=== PATIENT | male | born 1975 | race Hispanic/Latino ===

== ENCOUNTER 2017-01-17 13:10 | Observation (INO) | payer MEDICAID, OTHER ==
[2017-01-17 13:21] VITALS: TEMP 97.7
[2017-01-17 14:20] LABS: BASO % 0.3 % (0.0-2.0); EOS # 0.1 K/uL (0.0-0.7); EOS % 1.4 % (0.0-4.0); HEMATOCRIT 37.7 % (35.0-51.0); LYMPH # 1.8 K/uL (1.0-4.3); MEAN CELL VOLUME 88.1 fl (80.0-94.0); MEAN CORPUSCULAR HEMOGLOBIN 29.1 pg (27.0-31.0); MEAN PLATELET VOLUME 8.6 fl (7.2-11.7); MONO # 0.5 K/uL (0.0-0.8); MONO % 7.4 % (0.0-10.0); NEUT # 3.9 K/uL (1.8-7.0); NEUT % 62.9 % (50.0-75.0); NRBC % 0.1 % (0.0-0.0); RED CELL DISTRIBUTION WIDTH 14.6 % (11.5-14.5); WHITE BLOOD COUNT 6.3 K/uL (4.8-10.8)
[2017-01-17 14:26] LABS: ALCOHOL SERUM < 10 mg/dl (0-10); BLOOD UREA NITROGEN 12 mg/dl (9-20); CALCIUM 8.8 mg/dL (8.4-10.2); CARBON DIOXIDE 28 mmol/L (22-30); CHLORIDE 105 mmol/L (98-107); GFR AFRICAN-AMERICAN > 60; GLUCOSE,RANDOM 94 mg/dL (75-110); POTASSIUM 4.6 MMOL/L (3.6-5.0); SODIUM 142 mmol/l (132-148)
--- NOTE | 2017-01-17 14:30 | ED PDOC ---
HPI: Psych/Substance Abuse Time Seen by Provider: 01/17/17 13:46 Chief Complaint (Nursing): Substance Abuse Chief Complaint (Provider): i drank and did dope ED Caveat: Intoxicated History Per: Patient History/Exam Limitations: intoxication Onset/Duration Of Symptoms: Unknown Current Symptoms Are (Timing): Still Present Modifying Factor(s): Alcohol, Narcotics Severity: Moderate Involuntary Hold By: Emergency Physician Additional Complaint(s): 41yo male arrives c/o using alcohol and heroin IV today. Drowsy but arousable on exam. History limited due to clinical intoxication. Past Medical History Reviewed: Historical Data, Nursing Documentation, Vital Signs Vital Signs: Last Vital Signs Temp 97.7 F 01/17/17 13:18 Pulse 77 01/17/17 13:18 Resp 20 01/17/17 13:18 BP 108/71 01/17/17 13:18 Pulse Ox 95 01/17/17 13:18 - Medical History PMH: Anxiety, Back Problems, Bipolar Disorder, Depression, Hepatitis (C), Post Traumatic Stress Disorder Denies: Diabetes, HIV, HTN, Seizures, Sexually Transmitted Disease - Family History Family History: States: Unknown Family Hx - Living Arrangements Living Arrangements: Other (unknown) - Social History Current smoker - smoking cessation education provided: Yes Alcohol: > 2 Drinks/Day Drugs: Opiates - Immunization History Hx Tetanus Toxoid Vaccination: No Hx Influenza Vaccination: No Hx Pneumococcal Vaccination: No - Home Medications Home Medications: Ambulatory Orders Medication Instructions Recorded Alprazolam 1 mg PO DAILY 04/14/14 Alprazolam 2 mg PO HS 04/14/14 - Allergies Allergies/Adverse Reactions: Allergies Allergy/AdvReac Type Severity Reaction Status Date / Time No Known Allergies Allergy Verified 01/17/17 13:18 Review of Systems Review Of Systems: ROS cannot be obtained secondary to pt's inabilty to answer questions. Physical Exam - Reviewed Nursing Documentation Reviewed: Yes Vital Signs Reviewed: Yes - Physical Exam Appears: Positive for: Non-toxic (somnolent, mild apnea, maintaining airway without difficulty) Head Exam: Positive for: ATRAUMATIC, NORMAL INSPECTION, NORMOCEPHALIC Skin: Positive for: Normal Color, Warm, DRY Eye Exam: Positive for: EOMI, Normal appearance, PERRL ENT: Positive for: Normal ENT Inspection Neck: Positive for: Normal, Painless ROM Cardiovascular/Chest: Positive for: Regular Rate, Rhythm Respiratory: Positive for: CNT, Normal Breath Sounds Gastrointestinal/Abdominal: Positive for: Bowel Sounds, Soft. Negative for: Tenderness Back: Positive for: Normal Inspection Extremity: Positive for: Normal ROM, Other (track long) Neurologic/Psych: Positive for: Alert, Other (moves all ext w equal tone). Negative for: Motor/Sensory Deficits - Laboratory Results Result Diagrams: 01/17/17 14:05 01/17/17 14:05 - ECG O2 Sat by Pulse Oximetry: 95 ED OBSERVATION Date of observation admission: 01/17/17 Time of observation admission: 13:00 - Observation admission statement Patient is being placed in observation because:: persistent somnolence w history of heroin abuse - Goals of Observation Goals of observation are:: sobriety from intoxicant. Airway monitoring. - Progress Note Progress Note: 01/17/17 13:00 Placed into ED Obs 1pm for somnolence under reported heroin use. Maintaining airway and SPO2 96% on 2L NC. 01/17/17 16:52 Labs reviewed, etoh neg. Awake and alert, ate 2 sandwiches, maintaining wakefullness and no further signs somnolence. DC from ED. 01/17/17 17:16 pt walked out of ED after finishing food. Gait was stable. HR was prior in the 70s. Disposition - Clinical Impression Clinical Impression: Heroin abuse - Patient ED Disposition Is Patient to be Admitted: No Counseled Patient/Family Regarding: Studies Performed, Diagnosis, Need For Followup - Disposition Disposition: Left W/O Treatment Disposition Time: 17:18 Condition: STABLE
[2017-01-17 16:07] VITALS: BP 104/66; PULSE 63; RESP 17
[2017-01-17 16:53] VITALS: O2SAT 95
--- NOTE | 2017-01-17 21:18 | CARD ---
APPROVED REPORT EKG Measurement Heart [id number] <Conclusion> Sinus bradycardia with sinus arrhythmia Otherwise normal ECG
== END 2017-01-17 17:36 | disposition home or self-care (01) ==
LOC: H.ER 13:10 → H.EROBSV 13:11 → UNDOADMOB 16:51 → UNDODISOB 17:36
PROVIDERS: ADMIT Emergency Medicine; ATTEND Emergency Medicine
DX: F11.10 Opioid abuse, uncomplicated (principal); F17.200 Nicotine dependence, unspecified, uncomplicated; Z86.59 Personal history of other mental and behavioral disorders

== ENCOUNTER 2017-01-19 02:04 | Emergency (ER) | payer MEDICAID ==
[2017-01-19 02:22] VITALS: BP 104/65; PULSE 68; RESP 16; TEMP 97.9; O2SAT 95
--- NOTE | 2017-01-19 03:18 | ED PDOC ---
HPI: Psych/Substance Abuse Time Seen by Provider: 01/19/17 02:09 Chief Complaint (Nursing): Substance Abuse Chief Complaint (Provider): Substance Abuse ED Caveat: Intoxicated History Per: Patient History/Exam Limitations: intoxication Current Symptoms Are (Timing): Still Present Suicide/Self Injury Attempted (Context): None Modifying Factor(s): Other (Heroin) Additional Complaint(s): 41 year old male presents to ED due to intoxication and has an unknown past medical history. Patient admits to using 4 bags of heroin and is unable to provide any HPI. Patient is arousable. PCP: None Past Medical History Reviewed: Nursing Documentation, Vital Signs, Unable To Obtain Vital Signs: Last Vital Signs Temp 97.9 F 01/19/17 02:20 Pulse 68 01/19/17 02:20 Resp 16 01/19/17 02:20 BP 104/65 01/19/17 02:20 Pulse Ox 95 01/19/17 02:20 - Medical History PMH: Anxiety, Back Problems, Bipolar Disorder, Depression, Hepatitis (C), Post Traumatic Stress Disorder Denies: Diabetes, HIV, HTN, Seizures, Sexually Transmitted Disease - Family History Family History: States: Unknown Family Hx - Social History Current smoker - smoking cessation education provided: Yes (cigarettes) Drugs: Other (Heroin) - Immunization History Hx Tetanus Toxoid Vaccination: No Hx Influenza Vaccination: No Hx Pneumococcal Vaccination: No - Home Medications Home Medications: Ambulatory Orders Medication Instructions Recorded Alprazolam 1 mg PO DAILY 04/14/14 Alprazolam 2 mg PO HS 04/14/14 - Allergies Allergies/Adverse Reactions: Allergies Allergy/AdvReac Type Severity Reaction Status Date / Time No Known Allergies Allergy Verified 01/17/17 13:18 Review of Systems Review Of Systems: ROS cannot be obtained secondary to pt's inabilty to answer questions. Physical Exam - Reviewed Nursing Documentation Reviewed: Yes Vital Signs Reviewed: Yes - Physical Exam Appears: Positive for: No Acute Distress Skin: Positive for: Normal Color, Warm, Dry Eye Exam: Positive for: EOMI. Negative for: Normal appearance, PERRL (pinpoint pupils) ENT: Positive for: Normal ENT Inspection Neck: Positive for: Normal Cardiovascular/Chest: Positive for: Regular Rate, Rhythm Respiratory: Negative for: Respiratory Distress Gastrointestinal/Abdominal: Positive for: Normal Exam Back: Positive for: Normal Inspection Extremity: Positive for: Normal ROM. Negative for: Deformity Neurologic/Psych: Negative for: Motor/Sensory Deficits - Laboratory Results Result Diagrams: 01/19/17 03:14 01/19/17 03:14 - ECG O2 Sat by Pulse Oximetry: 95 (RA) Pulse Ox Interpretation: Normal Medical Decision Making Medical Decision Makin Initial impression: heroin abuse Initial plan: * EKG * EtOH serum * Labs * US * ED OBS ADMIT All further documentation will take place in the ED OBS note. Scribe Attestation: Documented by Helen Reilly acting as a scribe for Lokesh Napier MD. Scribe Attestation: All medical record entries made by the Scribe were at my direction and personally dictated by me. I have reviewed the chart and agree that the record accurately reflects my personal performance of the history, physical exam, medical decision making, and the department course for this patient. I have also personally directed, reviewed, and agree with the discharge instructions and disposition. ED OBSERVATION Date of observation admission: 01/19/17 Time of observation admission: 02:52 - Observation admission statement Patient is being placed in observation because:: Intoxication/substance abuse - Progress Note Progress Note: 01/19/17 06:45 Patient is awake, alert A&Ox3. Patient walks with a steady gait and is stable for discharge home. Disposition - Clinical Impression Clinical Impression: Heroin abuse - Patient ED Disposition Is Patient to be Admitted: No - Disposition Disposition: Routine/Home Disposition Time: 02:52 Condition: STABLE Instructions: Narcotic Abuse (ED) - Pt Status Changed To: Hospital Disposition Of: Observation
[2017-01-19 03:19] LABS: BASO % 0.3 % (0.0-2.0); EOS # 0.2 K/uL (0.0-0.7); EOS % 2.5 % (0.0-4.0); HEMATOCRIT 37.2 % (35.0-51.0); LYMPH # 2.5 K/uL (1.0-4.3); LYMPH % 38.8 % (20.0-40.0); MEAN CELL VOLUME 89.2 fl (80.0-94.0); MEAN CORPUSCULAR HEMOGLOBIN 29.7 pg (27.0-31.0); MEAN CORPUSCULAR HGB CONC 33.3 g/dL (33.0-37.0); MEAN PLATELET VOLUME 8.7 fl (7.2-11.7); MONO # 0.5 K/uL (0.0-0.8); MONO % 7.7 % (0.0-10.0); NEUT # 3.3 K/uL (1.8-7.0); NEUT % 50.7 % (50.0-75.0); RED CELL DISTRIBUTION WIDTH 14.7 % (11.5-14.5); WHITE BLOOD COUNT 6.6 K/uL (4.8-10.8)
[2017-01-19 03:32] LABS: CHLORIDE 106 mmol/L (98-107)
[2017-01-19 03:33] LABS: POTASSIUM 3.7 MMOL/L (3.6-5.0); SODIUM 142 mmol/l (132-148)
[2017-01-19 03:35] LABS: ALB/GLOB RATIO 1.3 (1.0-2.1); ALKALINE PHOSPHATASE 101 U/L (38-126); AST/SGOT 133 U/L (17-59); BILIRUBIN,TOTAL 0.3 mg/dl (0.2-1.3); CARBON DIOXIDE 25 mmol/L (22-30); GFR AFRICAN-AMERICAN > 60; TOTAL PROTEIN 7.2 G/DL (6.3-8.2)
[2017-01-19 03:36] LABS: ALCOHOL SERUM 13 mg/dl (0-10); ALT/SGPT 134 U/L (21-72); BLOOD UREA NITROGEN 15 mg/dl (9-20); CALCIUM 8.7 mg/dL (8.4-10.2); GLUCOSE,RANDOM 85 mg/dL (75-110)
--- NOTE | 2017-01-19 18:21 | CARD ---
APPROVED REPORT EKG Measurement Heart [id number] <Conclusion> Sinus bradycardia with sinus arrhythmia Nonspecific T wave abnormality Abnormal ECG
== END 2017-01-19 07:00 | disposition home or self-care (01) ==
LOC: H.ER 02:04
DX: F11.10 Opioid abuse, uncomplicated (principal); F31.9 Bipolar disorder, unspecified; F41.9 Anxiety disorder, unspecified; F43.10 Post-traumatic stress disorder, unspecified